=== PATIENT | female | born 1950 | race Caucasian/White ===

== ENCOUNTER → 2016-08-19 | Outpatient (CLI) | payer MEDICARE, OTHER ==
[~2016-08-19] MED LIST: ALDA25TA PO; ASPI81TA85 PO; ATOR40TA PO; CALCTAB68 PO; CARV25TA PO; FURO40TA2 PO; INSUH10VL SC; LISI-538 PO; METF-415 PO; NEXI40CA PO; VITA200016 PO
--- NOTE | 2016-08-19 13:48 | REP ---
Clinical: Lung screening. History of smoking and lung cancer. Technique: Axial, noncontrast low-dose imaging using lung screening technique. Comparison: Chest CT dated 11/19/2011. Findings: Scattered calcified and few noncalcified granuloma are essentially unchanged compared to prior examination along with minimal right upper lobe, right middle lobe and trace basilar scarring. Postsurgical changes at the left hilum are stable and consistent with history of lung cancer. No significant pulmonary parenchymal consolidation, nodule or mass lesion. No pleural effusion. No pneumothorax. Mediastinum appears stable. Impression: Lung-RADS category III-C. Stable chronic and postsurgical changes along with stable small predominantly calcified nodules suggesting prior granulomas disease with history of prior lung cancer. Signed by Porfirio Danielle MD 08/19/2016 01:39 P
== END ==
LOC: M RAD 12:55
PROVIDERS: ATTEND Physician Assistant
DX: Z12.2 Encounter for screening for malignant neoplasm of respiratory organs (principal); Z87.891 Personal history of nicotine dependence; Z85.118 Personal history of other malignant neoplasm of bronchus and lung

== ENCOUNTER → 2016-09-10 | Outpatient (CLI) | payer OTHER ==
--- NOTE | 2016-09-10 10:46 | REPMRS ---
Patient History The patient states she has not had a clinical breast exam in over a year. Patient has history of lung cancer at age 58 and had previous chemotherapy at age 58. Family history of breast cancer in mother at age 62. Benign excisional biopsy of the right breast. Digital Woman Screen Mammo: September 10, 2016 - Exam #: [id number] Bilateral CC and MLO view(s) were taken. Technologist: Rashida Brian, Technologist Prior study comparison: September 10, 2015, digital woman screen mammo performed at [facility]. September 08, 2014, digital woman screen mammo performed at [facility]. FINDINGS: There are scattered fibroglandular densities. There has been no change in the appearance of the mammogram from the prior studies. There is a mild amount of residual fibroglandular tissue which is fairly symmetric. There is no interval development of dominant mass, architectural distortion, or clustered microcalcification suggestive of malignancy. ASSESSMENT: BI-RADS/ACR category 1 mammogram. Negative. Recommendation Routine screening mammogram in 1 year (for women over age 40). This mammogram was interpreted with the aid of an FDA-approved computer-aided dectection system. Electronically Signed By: London Palacios MD 09/10/16 [id number]
== END ==
LOC: M WHC 09:45
PROVIDERS: ATTEND Physician Assistant
DX: Z12.31 Encounter for screening mammogram for malignant neoplasm of breast (principal)

== ENCOUNTER → 2016-09-20 | Outpatient (CLI) | payer OTHER ==
--- NOTE | 2016-09-25 13:27 | SLEEPCENT ---
DATE OF STUDY: 09/20/2016 ORDERING PROVIDER: LYNN Desai Nocturnal polysomnography was performed due to the concern for the obstructive sleep apnea syndrome in this patient with a history of abnormal nocturnal oximetry, excessive somnolence, comorbidities of hypertension and diabetes. 7 hours and 19 minutes of data were reviewed. There were 363 minutes of sleep identified. Sleep latency was prolonged at 24 minutes. Rapid eye movement (REM) latency more so prolonged at 137 minutes. Sleep architecture showed some fragmentation. Overall sleep efficiency was good at 83%. The patient's electrocardiogram (EKG) showed a sinus rhythm with an average heart rate of 80 beats per minute. Some isolated unifocal ventricular ectopic beats were seen. Electroencephalogram (EEG) showed reasonably normal waveforms for awake and sleep. There were 41 respiratory events identified of 10 seconds in duration or greater for an apnea-hypopnea index of 6.8. The events were primarily obstructive, not exclusive to sleep stage nor body posture. Arousals from respiratory events when arousals from snoring were included occurred 6.9 times per hour. There was significant oxygen desaturations seen, prompting the addition of supplemental oxygen. 2 liters of oxygen did palliate the desaturations to some extent. Limb activity was also noted over the course of the study. Limb movement arousal index was borderline at 6.9. IMPRESSION: Obstructive sleep apnea syndrome (G47.33). RECOMMENDATION: The patient's oxygen desaturations were found amenable to supplemental oxygen. However, the respiratory disruption in sleep will require referral back to the sleep disorder center for pressure therapy. In the interim, alcohol and sedative avoidance should be practiced and caution exercised during the operation of motor vehicles.
== END ==
LOC: M SLEEP 19:45
PROVIDERS: ATTEND Nurse Practitioner Adult Health
DX: G47.33 Obstructive sleep apnea (adult) (pediatric) (principal)

== ENCOUNTER → 2016-11-11 | Outpatient (REF) | payer OTHER ==
[2016-11-11 12:33] LABS: MEAN CORPUSCULAR HEMOGLOBIN 28.4 pg (27.0-33.0); MEAN CORPUSCULAR HGB CONC 32.1 g/dl (32.0-36.5); MEAN CORPUSCULAR VOLUME 88.5 fl (80.0-96.0); RED CELL DISTRIBUTION WIDTH 15.4 % (11.5-14.5); WHITE BLOOD COUNT 8.1 K/mm3 (4.0-10.0)
[2016-11-11 12:57] LABS: ALBUMIN 3.4 GM/DL (3.2-5.2); ALBUMIN/GLOBULIN RATIO 0.83 (1.00-1.93); ALKALINE PHOSPHATASE 85 U/L (45-117); ALT/SGPT 20 U/L (12-78); ANION GAP 6 MEQ/L (8-16); AST/SGOT 13 U/L (15-37); BILIRUBIN,TOTAL 0.7 MG/DL (0.2-1.0); BLOOD UREA NITROGEN 16 MG/DL (7-18); CARBON DIOXIDE LEVEL 34 MEQ/L (21-32); CHLORIDE LEVEL 94 MEQ/L (98-107); CREATININE FOR GFR 0.85 MG/DL (0.55-1.02); GLOMERULAR FILTRATION RATE > 60.0 (>45); GLUCOSE, FASTING 126 MG/DL (80-110); POTASSIUM SERUM 4.3 MEQ/L (3.5-5.1); SODIUM LEVEL 134 MEQ/L (136-145); TOTAL PROTEIN 7.5 GM/DL (6.4-8.2)
== END ==
LOC: M SFHCADAM 08:49
PROVIDERS: ATTEND Physician Assistant
DX: E11.65 Type 2 diabetes mellitus with hyperglycemia (principal); F17.200 Nicotine dependence, unspecified, uncomplicated

== ENCOUNTER 2017-02-24 17:41 | Emergency (ER) | payer OTHER ==
[~2017-02-24] VITALS: Ht 160 cm; Wt 99.0 kg
[~2017-02-24 17:41] MED LIST changes: -ATOR40TA PO; +ATOR40TA75 PO
[2017-02-24] MEDS ORDERED: ANORA INH (18:03)
[2017-02-24] MEDS ORDERED: PROAAER10 INH (18:03)
[2017-02-24] MEDS ORDERED: LANTINJ4 SC (18:03)
[2017-02-24] MEDS ORDERED: ANOR1AER IN (18:06)
[2017-02-24] MEDS ORDERED: methylPREDNISolone INJ 125 MG/2 ML VIAL (J2930) IV ONE (18:15)
[2017-02-24] MEDS: IPRATROPIUM 0.5MG/ALBUTEROL 2.5MG INH SOL UD 3ML (DUONEB)(J7620) NEB PRN ×3 (18:28→18:47)
[2017-02-24 18:32] LABS: ABG BASE EXCESS 10.4 (-2.0-2.0); ABG HCO3 36.4 MEQ/L (22.0-26.0); ABG PARTIAL PRESSURE CO2 54.8 mmHg (35.0-45.0); ABG PARTIAL PRESSURE O2 83.4 mmHg (75.0-100.0); ABG STANDARD HCO3 34.2 MEQ/L (22.0-26.0); ABG TOTAL CO2 38.1 MEQ/L (23.0-31.0)
[2017-02-24 18:59] LABS: BASO % 0.3 % (0.0-1.0); EOS # 0.2 10^3/uL (0.0-0.50); EOS % 1.6 % (0.0-3.0); IMMATURE GRANULOCYTE % 0.3 % (0-0); LYMPH # 2.3 10^3/uL (1.5-4.5); LYMPH % 24.2 % (24.0-44.0); MEAN CORPUSCULAR HEMOGLOBIN 26.9 pg (27.0-33.0); MEAN CORPUSCULAR HGB CONC 30.6 g/dl (32.0-36.5); MEAN CORPUSCULAR VOLUME 87.7 fl (80.0-96.0); MONO # 0.7 10^3/uL (0.0-0.8); MONO % 7.2 % (0.0-5.0); NEUTROPHILS # 6.4 10^3/uL (1.8-7.7); NEUTROPHILS % 66.4 % (36.0-66.0); PLATELET COUNT, AUTOMATED 241 10^3/uL (150-450); RED CELL DISTRIBUTION WIDTH 15.9 % (11.5-14.5); WHITE BLOOD COUNT 9.7 10^3/uL (4.0-10.0)
[2017-02-24 19:01] LABS: ADD MORPHOLOGY? NO
--- NOTE | 2017-02-24 19:04 | REP ---
Portable chest, 06:49 p.m., single AP view, the patient upright: Comparison is the PA and lateral chest of 10/01/2015. There are no focal infiltrates or effusions. There is a mild interstitial coarsening, unchanged, taking into consideration differences in radiographic technique. Cardiac size is normal for portable positioning. The ronny, mediastinum, and bony thorax are unchanged. There is a rib deformity on the left, unchanged. Impression: No acute cardiopulmonary findings. Signed by London Carranza MD 02/24/2017 06:56 P
[2017-02-24 19:35] LABS: ANION GAP 5 MEQ/L (8-16); BLOOD UREA NITROGEN 16 MG/DL (7-18); CALCIUM LEVEL 9.2 MG/DL (8.8-10.2); CARBON DIOXIDE LEVEL 34 MEQ/L (21-32); CHLORIDE LEVEL 103 MEQ/L (98-107); CREATININE FOR GFR 0.71 MG/DL (0.55-1.02); GLOMERULAR FILTRATION RATE > 60.0 (>45); GLUCOSE, FASTING 128 MG/DL (80-110); POTASSIUM SERUM 3.7 MEQ/L (3.5-5.1); SODIUM LEVEL 142 MEQ/L (136-145)
[2017-02-24] MEDS ORDERED: PRED20TA PO (20:13)
[2017-02-24] MEDS ORDERED: FUROSEMIDE 100 MG/10 ML VIAL (J1940) IV ONE (20:15)
[2017-02-24 20:48] VITALS: BP 148/65
--- NOTE | 2017-02-25 09:28 | ECGEPIP ---
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
== END 2017-02-24 20:52 | disposition home or self-care (01) ==
LOC: M ED 17:41
DX: J44.9 Chronic obstructive pulmonary disease, unspecified (principal); I50.9 Heart failure, unspecified; E11.9 Type 2 diabetes mellitus without complications; I10 Essential (primary) hypertension; I51.7 Cardiomegaly; F17.200 Nicotine dependence, unspecified, uncomplicated; Z79.82 Long term (current) use of aspirin; Z79.899 Other long term (current) drug therapy; Z79.4 Long term (current) use of insulin
CPT/HCPCS: 36415; 36600; 71010; 80048; 82550; 82553; 82803; 83605; 83880; 84484; 85025; 87040; 93005; 93041; 94640; 96374; 96375; 99284; J1940; J2930

== ENCOUNTER → 2017-03-31 | Outpatient (REF) | payer OTHER ==
[~2017-03-31] MED LIST changes: +ANOR1AER IN; +ANORA INH; +LANTINJ4 SC; +PRED20TA PO; +PROAAER10 INH
[2017-03-31 18:36] LABS: ANION GAP 8 MEQ/L (8-16); BLOOD UREA NITROGEN 26 MG/DL (7-18); CALCIUM LEVEL 9.6 MG/DL (8.8-10.2); CARBON DIOXIDE LEVEL 33 MEQ/L (21-32); CHLORIDE LEVEL 99 MEQ/L (98-107); CREATININE FOR GFR 0.94 MG/DL (0.55-1.02); GLOMERULAR FILTRATION RATE > 60.0 (>45); GLUCOSE, FASTING 117 MG/DL (80-110); POTASSIUM SERUM 4.4 MEQ/L (3.5-5.1); SODIUM LEVEL 140 MEQ/L (136-145)
== END ==
LOC: M SFHCADAM 15:33
PROVIDERS: ATTEND Physician Assistant
DX: I50.33 Acute on chronic diastolic (congestive) heart failure (principal); Z23 Encounter for immunization
CPT/HCPCS: 80048; 90471; 90662; G0463

== ENCOUNTER → 2017-06-25 | Outpatient (REF) | payer OTHER ==
[2017-06-25 21:11] LABS: ALBUMIN 3.4 GM/DL (3.2-5.2); ALBUMIN/GLOBULIN RATIO 0.87 (1.00-1.93); ALKALINE PHOSPHATASE 87 U/L (45-117); ALT/SGPT 14 U/L (12-78); ANION GAP 8 MEQ/L (8-16); AST/SGOT 12 U/L (7-37); BILIRUBIN,TOTAL 0.8 MG/DL (0.2-1.0); BLOOD UREA NITROGEN 14 MG/DL (7-18); CALCIUM LEVEL 8.8 MG/DL (8.8-10.2); CARBON DIOXIDE LEVEL 33 MEQ/L (21-32); CHLORIDE LEVEL 102 MEQ/L (98-107); CREATININE FOR GFR 0.84 MG/DL (0.55-1.02); GLOMERULAR FILTRATION RATE > 60.0 (>45); GLUCOSE, FASTING 117 MG/DL (70-100); POTASSIUM SERUM 3.9 MEQ/L (3.5-5.1); SODIUM LEVEL 143 MEQ/L (136-145); TOTAL PROTEIN 7.3 GM/DL (6.4-8.2)
[2017-06-25 21:14] LABS: ESTIMATED AVERAGE GLUCOSE 169 MG/DL (60-110); HEMOGLOBIN A1c 7.5 %
[2017-06-25 21:26] LABS: CREATININE, URINE 92.6 MG/DL; MALB URINE SIEMENS 11.6 MG/L; MAU/CREAT RATIO 12.5 MCG/MG (0.0-30.0)
[2017-06-26 10:21] LABS: HEP C VIRUS AB SCREEN MEDICARE < 0.0 INDEX (<0.8)
== END ==
LOC: M SFHCADAM 13:12
DX: E11.21 Type 2 diabetes mellitus with diabetic nephropathy (principal); Z11.59 Encounter for screening for other viral diseases; F17.200 Nicotine dependence, unspecified, uncomplicated; I50.22 Chronic systolic (congestive) heart failure; J44.9 Chronic obstructive pulmonary disease, unspecified; J01.00 Acute maxillary sinusitis, unspecified
CPT/HCPCS: 80053

== ENCOUNTER → 2017-09-16 | Outpatient (REF) | payer OTHER ==
[2017-09-16 18:05] LABS: APPEARANCE, URINE CLEAR (CLEAR); BACTERIA, URINE AUTO NEGATIVE (NEGATIVE); BILIRUBIN, URINE AUTO NEGATIVE (NEGATIVE); BLOOD, URINE BLOOD 1+ (NEGATIVE); COLOR, URINE YELLOW (YELLOW); GLUCOSE, URINE (UA) AUTO NEGATIVE (NEGATIVE); KETONE, URINE AUTO NEGATIVE (NEGATIVE); LEUKOCYTE ESTERASE, URINE AUTO NEGATIVE (NEGATIVE); NITRITE, URINE AUTO NEGATIVE (NEGATIVE); PROTEIN, URINE AUTO NEGATIVE (NEGATIVE); RBC, URINE AUTO 2 /HPF (0-3); SPECIFIC GRAVITY URINE AUTO 1.011 (1.002-1.035); SQUAMOUS EPITHELIAL CELL UR AU 0 /HPF (0-6); UROBILINOGEN, URINE AUTO 0.2 mg/dL (0.0-2.0); WBC, URINE AUTO 1 /HPF (0-3)
== END ==
LOC: M SFHCWAGY 16:57
DX: R31.29 Other microscopic hematuria (principal)
CPT/HCPCS: 81001

== ENCOUNTER → 2017-10-07 | Outpatient (REF) | payer OTHER ==
[2017-10-07 13:27] LABS: ESTIMATED AVERAGE GLUCOSE 160 MG/DL (60-110); HEMOGLOBIN A1c 7.2 %
[2017-10-07 13:59] LABS: ALBUMIN 3.3 GM/DL (3.2-5.2); ALBUMIN/GLOBULIN RATIO 0.83 (1.00-1.93); ALKALINE PHOSPHATASE 89 U/L (45-117); ALT/SGPT 13 U/L (12-78); ANION GAP 6 MEQ/L (8-16); AST/SGOT 9 U/L (7-37); BILIRUBIN,TOTAL 0.5 MG/DL (0.2-1.0); BLOOD UREA NITROGEN 12 MG/DL (7-18); CALCIUM LEVEL 8.7 MG/DL (8.8-10.2); CARBON DIOXIDE LEVEL 33 MEQ/L (21-32); CHLORIDE LEVEL 102 MEQ/L (98-107); CREATININE FOR GFR 0.79 MG/DL (0.55-1.30); FREE T4 1.22 NG/DL (0.76-1.46); GLOMERULAR FILTRATION RATE > 60.0 (>45); GLUCOSE, FASTING 119 MG/DL (70-100); POTASSIUM SERUM 4.6 MEQ/L (3.5-5.1); SODIUM LEVEL 141 MEQ/L (136-145); TOTAL PROTEIN 7.3 GM/DL (6.4-8.2)
== END ==
LOC: M SFHCPLAZ 08:48
DX: E11.65 Type 2 diabetes mellitus with hyperglycemia (principal); E11.29 Type 2 diabetes mellitus with other diabetic kidney complication; E11.21 Type 2 diabetes mellitus with diabetic nephropathy
CPT/HCPCS: 84443

== ENCOUNTER → 2017-10-22 | Outpatient (CLI) | payer OTHER | LOC: M WHC 13:00 | DX: Z12.31 Encounter for screening mammogram for malignant neoplasm of breast (principal) | CPT/HCPCS: 77067 ==

== ENCOUNTER 2017-11-06 09:39 | Day surgery (SDC) | payer OTHER ==
[2017-11-06] MEDS: NS 1,000 ML IV (10:00)
[2017-11-06] MEDS ORDERED: PROPOFOL 200 MG/20 ML VIAL As Ordered ×2 (11:17)
[2017-11-06] MEDS ORDERED: ePHEDrine SULFATE 25 MG/5 ML(5MG/ML) SYRINGE As Ordered (11:17)
== END 2017-11-06 12:12 | disposition home or self-care (01) ==
LOC: M OPP 09:39
DX: Z12.11 Encounter for screening for malignant neoplasm of colon (principal); Z86.010 Personal history of colon polyps; D12.1 Benign neoplasm of appendix; K62.1 Rectal polyp; K64.8 Other hemorrhoids; R10.13 Epigastric pain; K31.89 Other diseases of stomach and duodenum; I50.9 Heart failure, unspecified; I11.0 Hypertensive heart disease with heart failure; E78.5 Hyperlipidemia, unspecified; R60.0 Localized edema; Z85.118 Personal history of other malignant neoplasm of bronchus and lung; Z92.21 Personal history of antineoplastic chemotherapy; E10.9 Type 1 diabetes mellitus without complications; K21.9 Gastro-esophageal reflux disease without esophagitis; M19.90 Unspecified osteoarthritis, unspecified site; R06.02 Shortness of breath; F41.9 Anxiety disorder, unspecified; J44.9 Chronic obstructive pulmonary disease, unspecified; G47.30 Sleep apnea, unspecified; R06.83 Snoring; F17.210 Nicotine dependence, cigarettes, uncomplicated; Z88.8 Allergy status to other drugs, medicaments and biological substances; Z79.82 Long term (current) use of aspirin; Z79.899 Other long term (current) drug therapy; Z80.3 Family history of malignant neoplasm of breast; Z80.52 Family history of malignant neoplasm of bladder
CPT/HCPCS: 45380

== ENCOUNTER 2017-11-28 08:40 | Inpatient (IN) | payer OTHER ==
[2017-11-28] MEDS: IPRATROPIUM 0.5MG/ALBUTEROL 2.5MG INH SOL UD 3ML (DUONEB)(J7620) NEB ×7 (06:50→23:02)
[2017-11-28] MEDS: dexameTHASONE 20 MG/5 ML VIAL (J1100) IV (07:09)
[2017-11-28 07:16] LABS: ABG HCO3 29.7 MEQ/L (22.0-26.0); ABG O2 SATURATION 98.6 % (95.0-99.0); ABG PARTIAL PRESSURE O2 156.9 mmHg (75.0-100.0); ABG STANDARD HCO3 24.5 MEQ/L (22.0-26.0)
[2017-11-28 07:20] LABS: ABG pH (ARTERIAL) 7.207 UNITS (7.350-7.450)
[2017-11-28 07:21] LABS: ABG PARTIAL PRESSURE CO2 76.4 mmHg (35.0-45.0)
[2017-11-28] MEDS: FUROSEMIDE 40 MG/4 ML VIAL (J1940) IV (07:45)
[2017-11-28 07:48] LABS: BASO % 0.2 % (0.0-1.0); EOS # 0.1 10^3/uL (0.0-0.50); EOS % 0.9 % (0.0-3.0); HEMATOCRIT 38.9 % (36.0-47.0); HEMOGLOBIN 11.4 g/dl (12.0-15.5); IMMATURE GRANULOCYTE % 0.6 % (0-3.0); LYMPH # 1.6 10^3/uL (1.5-4.5); MEAN CORPUSCULAR HEMOGLOBIN 24.8 pg (27.0-33.0); MEAN CORPUSCULAR HGB CONC 29.3 g/dl (32.0-36.5); MEAN CORPUSCULAR VOLUME 84.7 fl (80.0-96.0); MONO # 0.7 10^3/uL (0.0-0.8); MONO % 4.6 % (0.0-5.0); NEUTROPHILS # 11.9 10^3/uL (1.8-7.7); NEUTROPHILS % 82.7 % (36.0-66.0); PLATELET COUNT, AUTOMATED 306 10^3/uL (150-450); RED BLOOD COUNT 4.59 10^6/uL (4.00-5.40); RED CELL DISTRIBUTION WIDTH 17.8 % (11.5-14.5); WHITE BLOOD COUNT 14.4 10^3/uL (4.0-10.0)
[2017-11-28] MEDS: cefTRIAXone SOD 2 GM in D5W MINI-BAG PLUS 50 ML IV (08:13)
[2017-11-28 08:16] LABS: LACTIC ACID SEPSIS PROTOCOL 1.6 MMOL/L (0.4-2.0)
[2017-11-28 08:17] LABS: ANION GAP 7 MEQ/L (8-16); BLOOD UREA NITROGEN 19 MG/DL (7-18); CALCIUM LEVEL 8.4 MG/DL (8.8-10.2); CARBON DIOXIDE LEVEL 33 MEQ/L (21-32); CHLORIDE LEVEL 102 MEQ/L (98-107); CPK CREATINE PHOSPHOKINASE 105 U/L (26-192); CREATININE FOR GFR 0.81 MG/DL (0.55-1.30); GLOMERULAR FILTRATION RATE > 60.0 (>45); GLUCOSE, FASTING 235 MG/DL (70-100); POTASSIUM SERUM 4.1 MEQ/L (3.5-5.1); SODIUM LEVEL 142 MEQ/L (136-145); TROPONIN I 0.03 NG/ML (< 0.10)
[2017-11-28 08:23] LABS: CK-MB VALUE MASS 2.3 NG/ML (<3.6); MB/CK RELATIVE INDEX 2.19 (< OR =4); NT-PRO BNP 707 PG/ML (<125)
[2017-11-28 08:39] LABS: ABG BASE EXCESS 4.6 (-2.0-2.0); ABG HCO3 31.7 MEQ/L (22.0-26.0); ABG O2 SATURATION 95.2 % (95.0-99.0); ABG PARTIAL PRESSURE CO2 59.6 mmHg (35.0-45.0); ABG PARTIAL PRESSURE O2 82.9 mmHg (75.0-100.0); ABG STANDARD HCO3 28.6 MEQ/L (22.0-26.0); ABG TOTAL CO2 33.6 MEQ/L (23.0-31.0); ABG pH (ARTERIAL) 7.344 UNITS (7.350-7.450)
[~2017-11-28 08:40] MED LIST changes: -ALDA25TA PO; -ANOR1AER IN; -ANORA INH; -ASPI81TA85 PO; -ATOR40TA75 PO; -CALCTAB68 PO; -CARV25TA PO; -FURO40TA2 PO; -INSUH10VL SC; +IPRATROPIUM 0.5MG/ALBUTEROL 2.5MG INH SOL UD 3ML (DUONEB)(J7620) As Ordered; -LANTINJ4 SC; -LISI-538 PO; -METF-415 PO; -NEXI40CA PO; -PRED20TA PO; -PROAAER10 INH; -VITA200016 PO; +dexameTHASONE 20 MG/5 ML VIAL (J1100) IV
[2017-11-28] MEDS: AZITHROMYCIN INJ 500 MG, VIAL MATE ADAPTER 1 EACH in D5W 250 ML IV (08:47)
[2017-11-28] MEDS ORDERED: IPRATROPIUM 0.5MG/ALBUTEROL 2.5MG INH SOL UD 3ML (DUONEB)(J7620) NEB (10:45)
[2017-11-28] MEDS ORDERED: GLUCOSE 4 GM CHEW TABLET PO (10:45)
[2017-11-28] MEDS ORDERED: DEXTROSE 50% 50 ML SYRINGE IV (10:45)
[2017-11-28] MEDS ORDERED: GLUCAGON FOR INJ 1 MG VIAL (J1610) SC (10:45)
[2017-11-28] MEDS ORDERED: LACTIC ACID 12% LOTION 225 GM BTL TOP (10:45)
[2017-11-28 10:51] LABS: ABG BASE EXCESS 4.6 (-2.0-2.0); ABG O2 SATURATION 96.2 % (95.0-99.0); ABG PARTIAL PRESSURE CO2 54.8 mmHg (35.0-45.0); ABG PARTIAL PRESSURE O2 87.7 mmHg (75.0-100.0); ABG STANDARD HCO3 28.6 MEQ/L (22.0-26.0); ABG TOTAL CO2 32.7 MEQ/L (23.0-31.0); ABG pH (ARTERIAL) 7.371 UNITS (7.350-7.450)
[2017-11-28] MEDS ORDERED: methylPREDNISolone INJ 125 MG/2 ML VIAL (J2930) IV (11:00)
[2017-11-28 12:18] LABS: BEDSIDE GLUCOSE 188 MG/DL (80-115)
[2017-11-28] MEDS: methylPREDNISolone INJ 125 MG/2 ML VIAL (J2930) IV ×2 (14:00→21:27)
[2017-11-28] MEDS: NICOTINE 7 MG/24 HR TRANSDERMAL TD (14:00)
[2017-11-28] MEDS: HumaLOG INSULIN (NovoLOG) PER UNIT SC ×3 (14:00→21:28)
[2017-11-28] MEDS: CARVedilol 12.5 MG TAB PO ×2 (14:01→20:10)
[2017-11-28] MEDS: ASPIRIN 81 MG ENTERIC TAB PO (14:01)
[2017-11-28] MEDS: OMEPRAZOLE 20 MG CAP PO ×2 (14:02→21:28)
[2017-11-28] MEDS: SPIRONOLACTONE 25 MG TAB PO (14:02)
[2017-11-28] MEDS: LISINOPRIL 20 MG TAB PO (14:02)
[2017-11-28] MEDS: LevoFLOXacin IV 500 MG in APPROPRIATE DILUENT 1 EA IV (14:03)
[2017-11-28] MEDS: LEVEMIR (INSULIN DETEMIR) 1 UNITS/0.01ML SC (14:12)
[2017-11-28 17:31] LABS: BEDSIDE GLUCOSE 382 MG/DL (80-115)
[2017-11-28] MEDS: FUROSEMIDE 40 MG TAB PO (18:26)
[2017-11-28 20:59] LABS: BEDSIDE GLUCOSE 380 MG/DL (80-115)
[2017-11-28] MEDS: ATORVASTATIN 20 MG TAB PO (21:28)
[2017-11-29] MEDS: IPRATROPIUM 0.5MG/ALBUTEROL 2.5MG INH SOL UD 3ML (DUONEB)(J7620) NEB ×6 (04:48→23:50)
[2017-11-29 04:59] LABS: HEMATOCRIT 34.1 % (36.0-47.0); HEMOGLOBIN 10.2 g/dl (12.0-15.5); MEAN CORPUSCULAR HEMOGLOBIN 25.1 pg (27.0-33.0); MEAN CORPUSCULAR HGB CONC 29.9 g/dl (32.0-36.5); MEAN CORPUSCULAR VOLUME 83.8 fl (80.0-96.0); PLATELET COUNT, AUTOMATED 240 10^3/uL (150-450); RED BLOOD COUNT 4.07 10^6/uL (4.00-5.40); RED CELL DISTRIBUTION WIDTH 17.5 % (11.5-14.5); WHITE BLOOD COUNT 9.5 10^3/uL (4.0-10.0)
[2017-11-29 05:23] LABS: ALBUMIN 2.8 GM/DL (3.2-5.2); ALBUMIN/GLOBULIN RATIO 0.65 (1.00-1.93); ALKALINE PHOSPHATASE 90 U/L (45-117); ALT/SGPT 40 U/L (12-78); ANION GAP 3 MEQ/L (8-16); AST/SGOT 26 U/L (7-37); BILIRUBIN,TOTAL 0.5 MG/DL (0.2-1.0); BLOOD UREA NITROGEN 26 MG/DL (7-18); CALCIUM LEVEL 8.3 MG/DL (8.8-10.2); CARBON DIOXIDE LEVEL 37 MEQ/L (21-32); CHLORIDE LEVEL 101 MEQ/L (98-107); CREATININE FOR GFR 0.91 MG/DL (0.55-1.30); GLOMERULAR FILTRATION RATE > 60.0 (>45); GLUCOSE, FASTING 328 MG/DL (70-100); POTASSIUM SERUM 4.1 MEQ/L (3.5-5.1); SODIUM LEVEL 141 MEQ/L (136-145); TOTAL PROTEIN 7.1 GM/DL (6.4-8.2)
[2017-11-29] MEDS: methylPREDNISolone INJ 125 MG/2 ML VIAL (J2930) IV (06:10)
[2017-11-29] MEDS: LEVEMIR (INSULIN DETEMIR) 1 UNITS/0.01ML SC (08:21)
[2017-11-29] MEDS: LISINOPRIL 20 MG TAB PO (08:22)
[2017-11-29] MEDS: ASPIRIN 81 MG ENTERIC TAB PO (08:22)
[2017-11-29] MEDS: HumaLOG INSULIN (NovoLOG) PER UNIT SC ×4 (08:22→21:12)
[2017-11-29] MEDS: FUROSEMIDE 80 MG TAB PO (08:23)
[2017-11-29] MEDS: OMEPRAZOLE 20 MG CAP PO ×2 (08:23→21:13)
[2017-11-29] MEDS: SPIRONOLACTONE 25 MG TAB PO (08:23)
[2017-11-29] MEDS: CARVedilol 12.5 MG TAB PO ×2 (08:23→21:00)
[2017-11-29] MEDS: NICOTINE 7 MG/24 HR TRANSDERMAL TD (08:23)
[2017-11-29] MEDS ORDERED: LevoFLOXacin IV 750 MG in APPROPRIATE DILUENT 1 EA IV (09:00)
[2017-11-29] MEDS: LevoFLOXacin 500 MG TABLET PO (10:02)
[2017-11-29 12:15] LABS: BEDSIDE GLUCOSE 305 MG/DL (80-115)
[2017-11-29] MEDS: methylPREDNISolone INJ 40 MG/1 ML VIAL (J2920) IV ×2 (14:05→21:12)
[2017-11-29] MEDS: FUROSEMIDE 40 MG TAB PO ×2 (15:05→18:24)
[2017-11-29 16:52] LABS: BEDSIDE GLUCOSE 358 MG/DL (80-115)
[2017-11-29 20:59] LABS: BEDSIDE GLUCOSE 346 MG/DL (80-115)
[2017-11-29] MEDS: ATORVASTATIN 20 MG TAB PO (21:13)
[2017-11-30] MEDS: IPRATROPIUM 0.5MG/ALBUTEROL 2.5MG INH SOL UD 3ML (DUONEB)(J7620) NEB ×5 (03:50→20:02)
[2017-11-30 05:13] LABS: HEMATOCRIT 34.8 % (36.0-47.0); HEMOGLOBIN 10.1 g/dl (12.0-15.5); MEAN CORPUSCULAR HEMOGLOBIN 24.6 pg (27.0-33.0); MEAN CORPUSCULAR VOLUME 84.9 fl (80.0-96.0); PLATELET COUNT, AUTOMATED 250 10^3/uL (150-450); RED CELL DISTRIBUTION WIDTH 17.9 % (11.5-14.5); WHITE BLOOD COUNT 14.3 10^3/uL (4.0-10.0)
[2017-11-30 05:31] LABS: ALBUMIN 2.8 GM/DL (3.2-5.2); ALBUMIN/GLOBULIN RATIO 0.67 (1.00-1.93); ALKALINE PHOSPHATASE 104 U/L (45-117); ALT/SGPT 35 U/L (12-78); ANION GAP 3 MEQ/L (8-16); AST/SGOT 12 U/L (7-37); BILIRUBIN,TOTAL 0.4 MG/DL (0.2-1.0); BLOOD UREA NITROGEN 32 MG/DL (7-18); CALCIUM LEVEL 8.3 MG/DL (8.8-10.2); CARBON DIOXIDE LEVEL 36 MEQ/L (21-32); CHLORIDE LEVEL 101 MEQ/L (98-107); CREATININE FOR GFR 0.94 MG/DL (0.55-1.30); GLOMERULAR FILTRATION RATE > 60.0 (>45); GLUCOSE, FASTING 355 MG/DL (70-100); POTASSIUM SERUM 4.3 MEQ/L (3.5-5.1); SODIUM LEVEL 140 MEQ/L (136-145)
[2017-11-30] MEDS: LevoFLOXacin 500 MG TABLET PO (06:06)
[2017-11-30] MEDS: HumaLOG INSULIN (NovoLOG) PER UNIT SC ×4 (07:56→20:51)
[2017-11-30] MEDS: OMEPRAZOLE 20 MG CAP PO ×2 (07:57→20:50)
[2017-11-30] MEDS: FUROSEMIDE 80 MG TAB PO (07:57)
[2017-11-30] MEDS: ASPIRIN 81 MG ENTERIC TAB PO (07:57)
[2017-11-30] MEDS: CARVedilol 12.5 MG TAB PO ×2 (07:58→20:51)
[2017-11-30] MEDS: SPIRONOLACTONE 25 MG TAB PO (07:58)
[2017-11-30] MEDS: predniSONE 20 MG TAB PO (07:58)
[2017-11-30] MEDS: LISINOPRIL 20 MG TAB PO (07:58)
[2017-11-30] MEDS: LEVEMIR (INSULIN DETEMIR) 1 UNITS/0.01ML SC (07:59)
[2017-11-30] MEDS: NICOTINE 7 MG/24 HR TRANSDERMAL TD (08:00)
[2017-11-30] MEDS: MIRALAX *UNIT DOSE* 17GM PACKET PO (08:00)
[2017-11-30 11:29] LABS: BEDSIDE GLUCOSE 291 MG/DL (80-115)
[2017-11-30 17:06] LABS: BEDSIDE GLUCOSE 335 MG/DL (80-115)
[2017-11-30] MEDS: FUROSEMIDE 40 MG TAB PO (17:42)
[2017-11-30 20:49] LABS: BEDSIDE GLUCOSE 303 MG/DL (80-115)
[2017-11-30] MEDS: ATORVASTATIN 20 MG TAB PO (20:50)
[2017-12-01] MEDS: IPRATROPIUM 0.5MG/ALBUTEROL 2.5MG INH SOL UD 3ML (DUONEB)(J7620) NEB ×6 (00:03→19:21)
[2017-12-01] MEDS: LevoFLOXacin 500 MG TABLET PO (05:10)
[2017-12-01 05:19] LABS: HEMATOCRIT 32.7 % (36.0-47.0); HEMOGLOBIN 9.8 g/dl (12.0-15.5); MEAN CORPUSCULAR HEMOGLOBIN 24.9 pg (27.0-33.0); MEAN CORPUSCULAR VOLUME 83.2 fl (80.0-96.0); PLATELET COUNT, AUTOMATED 232 10^3/uL (150-450); RED BLOOD COUNT 3.93 10^6/uL (4.00-5.40); RED CELL DISTRIBUTION WIDTH 17.8 % (11.5-14.5); WHITE BLOOD COUNT 12.6 10^3/uL (4.0-10.0)
[2017-12-01 05:48] LABS: ALBUMIN 2.7 GM/DL (3.2-5.2); ALBUMIN/GLOBULIN RATIO 0.69 (1.00-1.93); ALKALINE PHOSPHATASE 92 U/L (45-117); ALT/SGPT 32 U/L (12-78); ANION GAP 5 MEQ/L (8-16); AST/SGOT 13 U/L (7-37); BILIRUBIN,TOTAL 0.4 MG/DL (0.2-1.0); BLOOD UREA NITROGEN 36 MG/DL (7-18); CALCIUM LEVEL 8.1 MG/DL (8.8-10.2); CARBON DIOXIDE LEVEL 38 MEQ/L (21-32); CHLORIDE LEVEL 101 MEQ/L (98-107); CREATININE FOR GFR 0.78 MG/DL (0.55-1.30); GLOMERULAR FILTRATION RATE > 60.0 (>45); GLUCOSE, FASTING 222 MG/DL (70-100); SODIUM LEVEL 144 MEQ/L (136-145); TOTAL PROTEIN 6.6 GM/DL (6.4-8.2)
[2017-12-01] MEDS: HumaLOG INSULIN (NovoLOG) PER UNIT SC ×4 (07:28→20:44)
[2017-12-01] MEDS: NICOTINE 7 MG/24 HR TRANSDERMAL TD (09:24)
[2017-12-01] MEDS: LEVEMIR (INSULIN DETEMIR) 1 UNITS/0.01ML SC (09:24)
[2017-12-01] MEDS: CARVedilol 12.5 MG TAB PO ×2 (09:25→20:43)
[2017-12-01] MEDS: ASPIRIN 81 MG ENTERIC TAB PO (09:25)
[2017-12-01] MEDS: OMEPRAZOLE 20 MG CAP PO ×2 (09:26→20:42)
[2017-12-01] MEDS: LISINOPRIL 20 MG TAB PO (09:26)
[2017-12-01] MEDS: SPIRONOLACTONE 25 MG TAB PO (09:26)
[2017-12-01] MEDS: predniSONE 20 MG TAB PO (09:26)
[2017-12-01] MEDS: FUROSEMIDE 80 MG TAB PO (09:26)
[2017-12-01 11:17] LABS: BEDSIDE GLUCOSE 162 MG/DL (80-115)
[2017-12-01 16:35] LABS: BEDSIDE GLUCOSE 297 MG/DL (80-115)
[2017-12-01] MEDS: FUROSEMIDE 40 MG TAB PO (17:06)
[2017-12-01 20:19] LABS: BEDSIDE GLUCOSE 369 MG/DL (80-115)
[2017-12-01] MEDS: ATORVASTATIN 20 MG TAB PO (20:43)
[2017-12-02] MEDS: IPRATROPIUM 0.5MG/ALBUTEROL 2.5MG INH SOL UD 3ML (DUONEB)(J7620) NEB ×3 (00:14→08:10)
[2017-12-02] MEDS: LevoFLOXacin 500 MG TABLET PO (05:30)
[2017-12-02 05:35] LABS: HEMATOCRIT 34.5 % (36.0-47.0); HEMOGLOBIN 10.2 g/dl (12.0-15.5); MEAN CORPUSCULAR HEMOGLOBIN 24.5 pg (27.0-33.0); MEAN CORPUSCULAR HGB CONC 29.6 g/dl (32.0-36.5); MEAN CORPUSCULAR VOLUME 82.9 fl (80.0-96.0); PLATELET COUNT, AUTOMATED 214 10^3/uL (150-450); RED BLOOD COUNT 4.16 10^6/uL (4.00-5.40); RED CELL DISTRIBUTION WIDTH 17.6 % (11.5-14.5); WHITE BLOOD COUNT 10.2 10^3/uL (4.0-10.0)
[2017-12-02 05:45] LABS: ALBUMIN 2.7 GM/DL (3.2-5.2); ALBUMIN/GLOBULIN RATIO 0.71 (1.00-1.93); ALKALINE PHOSPHATASE 96 U/L (45-117); ALT/SGPT 37 U/L (12-78); ANION GAP 2 MEQ/L (8-16); AST/SGOT 13 U/L (7-37); BILIRUBIN,TOTAL 0.5 MG/DL (0.2-1.0); BLOOD UREA NITROGEN 31 MG/DL (7-18); CALCIUM LEVEL 8.2 MG/DL (8.8-10.2); CARBON DIOXIDE LEVEL 40 MEQ/L (21-32); CHLORIDE LEVEL 100 MEQ/L (98-107); CREATININE FOR GFR 0.77 MG/DL (0.55-1.30); GLOMERULAR FILTRATION RATE > 60.0 (>45); GLUCOSE, FASTING 246 MG/DL (70-100); POTASSIUM SERUM 4.2 MEQ/L (3.5-5.1); SODIUM LEVEL 142 MEQ/L (136-145); TOTAL PROTEIN 6.5 GM/DL (6.4-8.2)
[2017-12-02] MEDS: FUROSEMIDE 80 MG TAB PO (07:52)
[2017-12-02] MEDS: LISINOPRIL 20 MG TAB PO (07:52)
[2017-12-02] MEDS: SPIRONOLACTONE 25 MG TAB PO (07:53)
[2017-12-02] MEDS: OMEPRAZOLE 20 MG CAP PO (07:53)
[2017-12-02] MEDS: predniSONE 20 MG TAB PO (07:53)
[2017-12-02] MEDS: CARVedilol 12.5 MG TAB PO (07:53)
[2017-12-02] MEDS: ASPIRIN 81 MG ENTERIC TAB PO (07:53)
[2017-12-02] MEDS: LEVEMIR (INSULIN DETEMIR) 1 UNITS/0.01ML SC (07:54)
[2017-12-02] MEDS: HumaLOG INSULIN (NovoLOG) PER UNIT SC (07:54)
[2017-12-02] MEDS: NICOTINE 7 MG/24 HR TRANSDERMAL TD (07:55)
== END 2017-12-02 11:41 | disposition home or self-care (01) | DRG 189 ==
LOC: M MSPAV 12-01 14:53 → M ED 08:40 → M ED INP 10:32 → M PCU 11:41
DX: J96.21 Acute and chronic respiratory failure with hypoxia (principal); J44.1 Chronic obstructive pulmonary disease with (acute) exacerbation; I42.9 Cardiomyopathy, unspecified; I50.22 Chronic systolic (congestive) heart failure; J96.22 Acute and chronic respiratory failure with hypercapnia; E11.40 Type 2 diabetes mellitus with diabetic neuropathy, unspecified; F17.200 Nicotine dependence, unspecified, uncomplicated; Z85.118 Personal history of other malignant neoplasm of bronchus and lung; G47.33 Obstructive sleep apnea (adult) (pediatric); Z79.82 Long term (current) use of aspirin; Z79.899 Other long term (current) drug therapy

== ENCOUNTER → 2017-12-10 | Outpatient (REF) | payer OTHER ==
[2017-12-10 19:25] LABS: BASO % 0.1 % (0.0-1.0); EOS % 0.1 % (0.0-3.0); HEMATOCRIT 39.7 % (36.0-47.0); HEMOGLOBIN 12.1 g/dl (12.0-15.5); IMMATURE GRANULOCYTE % 0.7 % (0-3.0); LYMPH # 1.7 10^3/uL (1.5-4.5); LYMPH % 9.3 % (24.0-44.0); MEAN CORPUSCULAR HEMOGLOBIN 25.1 pg (27.0-33.0); MEAN CORPUSCULAR HGB CONC 30.5 g/dl (32.0-36.5); MEAN CORPUSCULAR VOLUME 82.4 fl (80.0-96.0); MONO # 0.5 10^3/uL (0.0-0.8); MONO % 2.8 % (0.0-5.0); NEUTROPHILS # 15.7 10^3/uL (1.8-7.7); PLATELET COUNT, AUTOMATED 285 10^3/uL (150-450); RED BLOOD COUNT 4.82 10^6/uL (4.00-5.40); RED CELL DISTRIBUTION WIDTH 18.6 % (11.5-14.5); WHITE BLOOD COUNT 18.1 10^3/uL (4.0-10.0)
[2017-12-10 19:37] LABS: ALBUMIN 3.1 GM/DL (3.2-5.2); ALBUMIN/GLOBULIN RATIO 0.91 (1.00-1.93); ALKALINE PHOSPHATASE 95 U/L (45-117); ALT/SGPT 25 U/L (12-78); ANION GAP 8 MEQ/L (8-16); AST/SGOT 13 U/L (7-37); BLOOD UREA NITROGEN 26 MG/DL (7-18); CALCIUM LEVEL 8.6 MG/DL (8.8-10.2); CARBON DIOXIDE LEVEL 33 MEQ/L (21-32); CHLORIDE LEVEL 96 MEQ/L (98-107); CREATININE FOR GFR 0.89 MG/DL (0.55-1.30); GLOMERULAR FILTRATION RATE > 60.0 (>45); GLUCOSE, FASTING 108 MG/DL (70-100); MAGNESIUM LEVEL 1.7 MG/DL (1.8-2.4); POTASSIUM SERUM 4.9 MEQ/L (3.5-5.1); SODIUM LEVEL 137 MEQ/L (136-145); TOTAL PROTEIN 6.5 GM/DL (6.4-8.2)
== END ==
LOC: M SFHCADAM 14:16
DX: R25.2 Cramp and spasm (principal)
CPT/HCPCS: 83735

== ENCOUNTER → 2017-12-14 | Outpatient (REF) | payer OTHER ==
[2017-12-14 12:38] LABS: BASO % 0.1 % (0.0-1.0); EOS # 0.1 10^3/uL (0.0-0.50); EOS % 0.7 % (0.0-3.0); HEMATOCRIT 38.8 % (36.0-47.0); HEMOGLOBIN 11.7 g/dl (12.0-15.5); IMMATURE GRANULOCYTE % 0.5 % (0-3.0); LYMPH # 3.3 10^3/uL (1.5-4.5); LYMPH % 22.6 % (24.0-44.0); MEAN CORPUSCULAR HEMOGLOBIN 25.1 pg (27.0-33.0); MEAN CORPUSCULAR HGB CONC 30.2 g/dl (32.0-36.5); MEAN CORPUSCULAR VOLUME 83.1 fl (80.0-96.0); MONO # 0.9 10^3/uL (0.0-0.8); MONO % 6.2 % (0.0-5.0); NEUTROPHILS # 10.2 10^3/uL (1.8-7.7); NEUTROPHILS % 69.9 % (36.0-66.0); PLATELET COUNT, AUTOMATED 225 10^3/uL (150-450); RED BLOOD COUNT 4.67 10^6/uL (4.00-5.40); RED CELL DISTRIBUTION WIDTH 19.1 % (11.5-14.5); WHITE BLOOD COUNT 14.6 10^3/uL (4.0-10.0)
== END ==
LOC: M SFHCADAM 12:07
DX: R25.2 Cramp and spasm (principal)
CPT/HCPCS: 85025

== ENCOUNTER 2018-04-27 13:35 | Inpatient (IN) | payer OTHER ==
[2018-04-27] MEDS: ALBUTEROL SULFATE 2.5 MG/0.5 ML INH NEB SOLN INH (14:15)
[2018-04-27] MEDS: IPRATROPIUM 0.5MG/ALBUTEROL 2.5MG INH SOL UD 3ML (DUONEB)(J7620) NEB (14:15)
[2018-04-27 14:18] LABS: BASO % 0.2 % (0.0-1.0); HEMATOCRIT 36.9 % (36.0-47.0); IMMATURE GRANULOCYTE % 0.5 % (0-3.0); LYMPH % 7.6 % (24.0-44.0); MEAN CORPUSCULAR HEMOGLOBIN 24.6 pg (27.0-33.0); MEAN CORPUSCULAR HGB CONC 29.8 g/dl (32.0-36.5); MEAN CORPUSCULAR VOLUME 82.4 fl (80.0-96.0); MONO # 0.2 10^3/uL (0.0-0.8); MONO % 1.4 % (0.0-5.0); NEUTROPHILS % 90.3 % (36.0-66.0); PLATELET COUNT, AUTOMATED 300 10^3/uL (150-450); RED BLOOD COUNT 4.48 10^6/uL (4.00-5.40); RED CELL DISTRIBUTION WIDTH 16.6 % (11.5-14.5); WHITE BLOOD COUNT 13.3 10^3/uL (4.0-10.0)
[2018-04-27 14:24] LABS: ABG BASE EXCESS 2.7 (-2.0-2.0); ABG HCO3 27.5 MEQ/L (22.0-26.0); ABG O2 SATURATION 96.8 % (95.0-99.0); ABG PARTIAL PRESSURE CO2 43.3 mmHg (35.0-45.0); ABG PARTIAL PRESSURE O2 88.5 mmHg (75.0-100.0); ABG STANDARD HCO3 26.8 MEQ/L (22.0-26.0); ABG TOTAL CO2 28.8 MEQ/L (23.0-31.0)
[2018-04-27 14:43] LABS: INFLUENZA A AMPLIFICATION NEGATIVE (NEGATIVE); INFLUENZA B AMPLIFICATION NEGATIVE (NEGATIVE)
[2018-04-27 14:51] LABS: LACTIC ACID SEPSIS PROTOCOL 3.2 MMOL/L (0.4-2.0)
[2018-04-27 14:53] LABS: ALBUMIN 3.6 GM/DL (3.2-5.2); ALBUMIN/GLOBULIN RATIO 0.86 (1.00-1.93); ALKALINE PHOSPHATASE 91 U/L (45-117); ALT/SGPT 27 U/L (12-78); ANION GAP 9 MEQ/L (8-16); AST/SGOT 16 U/L (7-37); BILIRUBIN,DIRECT 0.2 MG/DL (0.0-0.2); BILIRUBIN,TOTAL 0.7 MG/DL (0.2-1.0); BLOOD UREA NITROGEN 31 MG/DL (7-18); CALCIUM LEVEL 9.4 MG/DL (8.8-10.2); CARBON DIOXIDE LEVEL 32 MEQ/L (21-32); CHLORIDE LEVEL 100 MEQ/L (98-107); CPK CREATINE PHOSPHOKINASE 56 U/L (26-192); GLOMERULAR FILTRATION RATE 59.1 (>45); GLUCOSE, FASTING 152 MG/DL (70-100); MB/CK RELATIVE INDEX 3.57 (< OR =4); NT-PRO BNP 912 PG/ML (<125); POTASSIUM SERUM 3.8 MEQ/L (3.5-5.1); SODIUM LEVEL 141 MEQ/L (136-145); THYROXINE (T4) 9.2 UG/DL (4.5-12.0); TOTAL PROTEIN 7.8 GM/DL (6.4-8.2); TROPONIN I < 0.02 NG/ML (< 0.10)
[2018-04-27] MEDS: FUROSEMIDE 40 MG/4 ML VIAL (J1940) IV (15:08)
[2018-04-27] MEDS: methylPREDNISolone INJ 125 MG/2 ML VIAL (J2930) IV (15:09)
[2018-04-27] MEDS ORDERED: ISOVUE-370 76% 100ML VIAL (Q9967) As Ordered (15:32)
[2018-04-27] MEDS ORDERED: IPRATROPIUM 0.5MG/ALBUTEROL 2.5MG INH SOL UD 3ML (DUONEB)(J7620) NEB (17:30)
[2018-04-27 21:34] LABS: TROPONIN I < 0.02 NG/ML (< 0.10)
[2018-04-27] MEDS ORDERED: GLUCOSE 4 GM CHEW TABLET PO ×2 (22:00→22:15)
[2018-04-27] MEDS ORDERED: DEXTROSE 50% 50 ML SYRINGE IV (22:15)
[2018-04-27] MEDS ORDERED: GLUCAGON FOR INJ 1 MG VIAL (J1610) SC (22:15)
[2018-04-27 22:29] LABS: BEDSIDE GLUCOSE 331 MG/DL (80-115)
[2018-04-27] MEDS: methylPREDNISolone INJ 40 MG/1 ML VIAL (J2920) IV (22:33)
[2018-04-27] MEDS: HumaLOG INSULIN (NovoLOG) PER UNIT SC (22:34)
[2018-04-28] MEDS: methylPREDNISolone INJ 40 MG/1 ML VIAL (J2920) IV ×3 (05:57→23:14)
[2018-04-28 06:39] LABS: ALBUMIN 3.1 GM/DL (3.2-5.2); ALBUMIN/GLOBULIN RATIO 0.91 (1.00-1.93); ALKALINE PHOSPHATASE 77 U/L (45-117); ALT/SGPT 20 U/L (12-78); ANION GAP 4 MEQ/L (8-16); AST/SGOT 8 U/L (7-37); BILIRUBIN,TOTAL 0.5 MG/DL (0.2-1.0); BLOOD UREA NITROGEN 32 MG/DL (7-18); CALCIUM LEVEL 8.6 MG/DL (8.8-10.2); CARBON DIOXIDE LEVEL 36 MEQ/L (21-32); CHLORIDE LEVEL 99 MEQ/L (98-107); CREATININE FOR GFR 0.94 MG/DL (0.55-1.30); GLOMERULAR FILTRATION RATE > 60.0 (>45); GLUCOSE, FASTING 302 MG/DL (70-100); POTASSIUM SERUM 4.1 MEQ/L (3.5-5.1); SODIUM LEVEL 139 MEQ/L (136-145); TOTAL PROTEIN 6.5 GM/DL (6.4-8.2)
[2018-04-28] MEDS: ENOXAPARIN 40 MG/0.4 ML SYRINGE (J1650) SC (09:20)
[2018-04-28] MEDS: LEVEMIR (INSULIN DETEMIR) 1 UNITS/0.01ML SC (09:20)
[2018-04-28] MEDS: FUROSEMIDE 100 MG/10 ML VIAL (J1940) IV (09:21)
[2018-04-28] MEDS: HumaLOG INSULIN (NovoLOG) PER UNIT SC ×4 (09:21→21:00)
[2018-04-28] MEDS: LevoFLOXacin IV 500 MG in APPROPRIATE DILUENT 1 EA IV (10:43)
[2018-04-28 12:23] LABS: BEDSIDE GLUCOSE 284 MG/DL (80-115)
[2018-04-28] MEDS: SPIRONOLACTONE 25 MG TAB PO (13:28)
[2018-04-28] MEDS: CARVedilol 12.5 MG TAB PO ×2 (13:28→21:07)
[2018-04-28] MEDS: ASPIRIN 81 MG ENTERIC TAB PO (13:28)
[2018-04-28] MEDS: LISINOPRIL 20 MG TAB PO (13:28)
[2018-04-28 17:16] LABS: BEDSIDE GLUCOSE 175 MG/DL (80-115)
[2018-04-28 20:57] LABS: BEDSIDE GLUCOSE 384 MG/DL (80-115)
[2018-04-28] MEDS: ATORVASTATIN 20 MG TAB PO (21:06)
[2018-04-29 06:46] LABS: ALBUMIN/GLOBULIN RATIO 0.77 (1.00-1.93); ALKALINE PHOSPHATASE 82 U/L (45-117); ALT/SGPT 18 U/L (12-78); ANION GAP 5 MEQ/L (8-16); AST/SGOT 8 U/L (7-37); BILIRUBIN,TOTAL 0.5 MG/DL (0.2-1.0); BLOOD UREA NITROGEN 34 MG/DL (7-18); CALCIUM LEVEL 8.5 MG/DL (8.8-10.2); CARBON DIOXIDE LEVEL 33 MEQ/L (21-32); CHLORIDE LEVEL 99 MEQ/L (98-107); CREATININE FOR GFR 0.87 MG/DL (0.55-1.30); GLOMERULAR FILTRATION RATE > 60.0 (>45); GLUCOSE, FASTING 265 MG/DL (70-100); POTASSIUM SERUM 3.9 MEQ/L (3.5-5.1); SODIUM LEVEL 137 MEQ/L (136-145); TOTAL PROTEIN 6.9 GM/DL (6.4-8.2)
[2018-04-29] MEDS: methylPREDNISolone INJ 40 MG/1 ML VIAL (J2920) IV (07:27)
[2018-04-29] MEDS: HumaLOG INSULIN (NovoLOG) PER UNIT SC ×4 (09:07→20:12)
[2018-04-29] MEDS: ASPIRIN 81 MG ENTERIC TAB PO (09:07)
[2018-04-29] MEDS: LEVEMIR (INSULIN DETEMIR) 1 UNITS/0.01ML SC (09:07)
[2018-04-29] MEDS: LISINOPRIL 20 MG TAB PO (09:09)
[2018-04-29] MEDS: SPIRONOLACTONE 25 MG TAB PO (09:09)
[2018-04-29] MEDS: CARVedilol 12.5 MG TAB PO ×2 (09:09→20:55)
[2018-04-29] MEDS: FUROSEMIDE 100 MG/10 ML VIAL (J1940) IV (09:10)
[2018-04-29] MEDS: LevoFLOXacin IV 500 MG in APPROPRIATE DILUENT 1 EA IV (09:10)
[2018-04-29] MEDS: ENOXAPARIN 40 MG/0.4 ML SYRINGE (J1650) SC (09:10)
[2018-04-29 11:16] LABS: BEDSIDE GLUCOSE 370 MG/DL (80-115)
[2018-04-29 17:22] LABS: BEDSIDE GLUCOSE 247 MG/DL (80-115)
[2018-04-29 20:12] LABS: BEDSIDE GLUCOSE 250 MG/DL (80-115)
[2018-04-29] MEDS: ATORVASTATIN 20 MG TAB PO (20:55)
[2018-04-30 07:25] LABS: HEMOGLOBIN 10.1 g/dl (12.0-15.5); MEAN CORPUSCULAR HEMOGLOBIN 24.2 pg (27.0-33.0); MEAN CORPUSCULAR HGB CONC 29.7 g/dl (32.0-36.5); MEAN CORPUSCULAR VOLUME 81.3 fl (80.0-96.0); PLATELET COUNT, AUTOMATED 267 10^3/uL (150-450); RED BLOOD COUNT 4.18 10^6/uL (4.00-5.40); RED CELL DISTRIBUTION WIDTH 16.6 % (11.5-14.5); WHITE BLOOD COUNT 13.7 10^3/uL (4.0-10.0)
[2018-04-30 07:46] LABS: ALBUMIN 2.9 GM/DL (3.2-5.2); ALBUMIN/GLOBULIN RATIO 0.81 (1.00-1.93); ALKALINE PHOSPHATASE 73 U/L (45-117); ALT/SGPT 21 U/L (12-78); ANION GAP 5 MEQ/L (8-16); AST/SGOT 11 U/L (7-37); BILIRUBIN,TOTAL 0.7 MG/DL (0.2-1.0); BLOOD UREA NITROGEN 36 MG/DL (7-18); CALCIUM LEVEL 8.7 MG/DL (8.8-10.2); CARBON DIOXIDE LEVEL 36 MEQ/L (21-32); CHLORIDE LEVEL 98 MEQ/L (98-107); CREATININE FOR GFR 0.85 MG/DL (0.55-1.30); GLOMERULAR FILTRATION RATE > 60.0 (>45); GLUCOSE, FASTING 117 MG/DL (70-100); POTASSIUM SERUM 3.7 MEQ/L (3.5-5.1); SODIUM LEVEL 139 MEQ/L (136-145); TOTAL PROTEIN 6.5 GM/DL (6.4-8.2)
[2018-04-30] MEDS: HumaLOG INSULIN (NovoLOG) PER UNIT SC (08:36)
[2018-04-30] MEDS: predniSONE 10 MG TAB PO (08:37)
[2018-04-30] MEDS: CARVedilol 12.5 MG TAB PO (08:37)
[2018-04-30] MEDS: ASPIRIN 81 MG ENTERIC TAB PO (08:37)
[2018-04-30] MEDS: FUROSEMIDE 40 MG TAB PO (08:37)
[2018-04-30] MEDS: SPIRONOLACTONE 25 MG TAB PO (08:37)
[2018-04-30] MEDS: LEVEMIR (INSULIN DETEMIR) 1 UNITS/0.01ML SC (08:37)
[2018-04-30] MEDS: LISINOPRIL 20 MG TAB PO (08:38)
[2018-04-30] MEDS: ENOXAPARIN 40 MG/0.4 ML SYRINGE (J1650) SC (08:38)
[2018-04-30] MEDS: LevoFLOXacin IV 500 MG in APPROPRIATE DILUENT 1 EA IV (08:39)
== END 2018-04-30 12:15 | disposition home or self-care (01) | DRG 292 ==
LOC: M PED 04-29 12:53 → M ED 13:35 → M PCU 04-29 12:55 → M PED 04-29 14:01 → M ED INP 17:15 → M PED 04-29 15:00 → M PCU 20:26
DX: I11.0 Hypertensive heart disease with heart failure (principal); J44.1 Chronic obstructive pulmonary disease with (acute) exacerbation; J96.11 Chronic respiratory failure with hypoxia; Z85.118 Personal history of other malignant neoplasm of bronchus and lung; E11.9 Type 2 diabetes mellitus without complications; F17.210 Nicotine dependence, cigarettes, uncomplicated; Z79.899 Other long term (current) drug therapy; Z79.82 Long term (current) use of aspirin; Z99.81 Dependence on supplemental oxygen; I50.23 Acute on chronic systolic (congestive) heart failure; G47.33 Obstructive sleep apnea (adult) (pediatric); Z88.8 Allergy status to other drugs, medicaments and biological substances; I27.20 Pulmonary hypertension, unspecified; I08.0 Rheumatic disorders of both mitral and aortic valves; I25.10 Atherosclerotic heart disease of native coronary artery without angina pectoris; E78.5 Hyperlipidemia, unspecified

== ENCOUNTER → 2018-06-24 | Outpatient (REF) | payer MEDICARE ==
[~2018-06-24] MED LIST changes: +ALBU83IN INH; +AMMO12LO TOP; +ANOR1AER INH; +ANORA INH; +ASPI81TA85 PO; +ATOR40TA75 PO; +BASA100I SC; +CALCTAB29 PO; +CALCTAB68 PO; +CARV25TA PO; +DOXY-350 PO; +FURO40TA2 PO; +IBUP200C25 PO; +INSUH10VL SC; -IPRATROPIUM 0.5MG/ALBUTEROL 2.5MG INH SOL UD 3ML (DUONEB)(J7620) As Ordered; +LANTINJ4 SC; +LEVA1TAB2 PO; +LEVO500T3 PO; +LISI-538 PO; +METF-415 PO; +METF-877 PO; +NEXI40CA PO; +OMEP20CA3 PO; +PRED10TA2 PO; +PRED20TA PO; +PROAAER10 INH; +SPIR-10 PO; +SPIR1TAB34 PO; +TREL1AER PO; +VENTAER INH; +VITA100067 PO; +VITA200016 PO; -dexameTHASONE 20 MG/5 ML VIAL (J1100) IV
[2018-06-24 20:17] LABS: ALBUMIN 3.2 GM/DL (3.2-5.2); ALT/SGPT 14 U/L (12-78); BILIRUBIN,TOTAL 0.7 MG/DL (0.2-1.0); BLOOD UREA NITROGEN 19 MG/DL (7-18); CALCIUM LEVEL 8.8 MG/DL (8.8-10.2); CARBON DIOXIDE LEVEL 32 MEQ/L (21-32); CHLORIDE LEVEL 98 MEQ/L (98-107); CHOLESTEROL LEVEL 114 MG/DL (<200); CREATININE FOR GFR 0.93 MG/DL (0.55-1.30); GLOMERULAR FILTRATION RATE > 60.0 (>45); GLUCOSE, FASTING 155 MG/DL (70-100); HDL CHOLESTEROL 53 MG/DL (>40); LDL CHOLESTEROL 38 MG/DL (<100); NON-HDL-C 61 MG/DL; POTASSIUM SERUM 4.7 MEQ/L (3.5-5.1); SODIUM LEVEL 139 MEQ/L (136-145); TOTAL PROTEIN 6.8 GM/DL (6.4-8.2); TRIGLYCERIDES LEVEL 116 MG/DL (<150)
[2018-06-24 20:30] LABS: HEMATOCRIT 34.7 % (36.0-47.0); HEMOGLOBIN 10.4 g/dl (12.0-15.5); MEAN CORPUSCULAR HEMOGLOBIN 24.1 pg (27.0-33.0); MEAN CORPUSCULAR VOLUME 80.3 fl (80.0-96.0); PLATELET COUNT, AUTOMATED 293 10^3/uL (150-450); RED BLOOD COUNT 4.32 10^6/uL (4.00-5.40); WHITE BLOOD COUNT 11.1 10^3/uL (4.0-10.0)
[2018-06-24 20:33] LABS: CREATININE, URINE 92.1 MG/DL; MALB URINE SIEMENS 7.8 MG/L; MAU/CREAT RATIO 8.4 MCG/MG (0.0-30.0)
[2018-06-24 20:52] LABS: HEMOGLOBIN A1c 8.1 %
== END ==
LOC: M SFHCADAM 15:17
PROVIDERS: ATTEND Physician Assistant
DX: E11.9 Type 2 diabetes mellitus without complications (principal)
CPT/HCPCS: 80053; 80061; 82043; 83036; 85027; G0463